=== PATIENT | male | born 1950 | race Caucasian/White ===

== ENCOUNTER 2019-08-30 13:13 | Emergency (ER) | payer MEDICARE, OTHER ==
--- NOTE | 2019-08-30 13:28 | ER Document Report ---
ED General - General Chief Complaint: Foot Injury Stated Complaint: RIGHT LEG INJURY Time Seen by Provider: 08/30/19 13:27 - HPI Patient complains to provider of: foot injury Notes: 69 y/o presenting to ED after his right foot was stuck under a pilon that rolled off the stack of pilons when he was attempting to get one for a job he notes his foot was trapped for about 45 minutes and he was unable to get up he has pain on top of foot without bruising or swelling he also has some pain in the ankle no head injury or LOC he is generally healthy per his report - Related Data Allergies/Adverse Reactions: No Known Allergies Allergy (Unverified 08/30/19 13:21) Past Medical History - Social History Smoking Status: Never Smoker Chew tobacco use (# tins/day): Yes Frequency of alcohol use: Occasional Drug Abuse: None Family History: Reviewed & Not Pertinent Patient has suicidal ideation: No Patient has homicidal ideation: No Review of Systems - Review of Systems Constitutional: No symptoms reported EENT: No symptoms reported Cardiovascular: No symptoms reported Respiratory: No symptoms reported Gastrointestinal: No symptoms reported Genitourinary: No symptoms reported Male Genitourinary: No symptoms reported Musculoskeletal: Other - foot pain Skin: No symptoms reported Hematologic/Lymphatic: No symptoms reported Neurological/Psychological: No symptoms reported Physical Exam - Vital signs Vitals: Temp Pulse Resp BP Pulse Ox 98.3 F 78 16 125/81 93 08/30/19 13:23 08/30/19 13:23 08/30/19 13:23 08/30/19 13:23 08/30/19 13:23 Interpretation: Normal - General General appearance: Appears well, Alert - HEENT Head: Normocephalic, Atraumatic Eyes: Normal Pupils: PERRL - Respiratory Respiratory status: No respiratory distress Chest status: Nontender Breath sounds: Normal Chest palpation: Normal - Cardiovascular Rhythm: Regular Heart sounds: Normal auscultation Murmur: No - Abdominal Inspection: Normal Distension: No distension Bowel sounds: Normal Tenderness: Nontender Organomegaly: No organomegaly - Back Back: Normal, Nontender - Extremities General upper extremity: Normal inspection, Nontender, Normal color, Normal ROM, Normal temperature General lower extremity: Normal inspection, Nontender, Normal color, Normal ROM, Normal temperature, Normal weight bearing. No: Shannon's sign Foot: Tender, Other - patient tender over dorsum of foot. good pulses. able to range. able to put weight on it. No: Deformity, Ecchymosis, Edema, Instability, Laceration - Neurological Neuro grossly intact: Yes Cognition: Normal Orientation: AAOx4 Loraine Coma Scale Eye Opening: Spontaneous Loraine Coma Scale Verbal: Oriented Lavinia Coma Scale Motor: Obeys Commands Loraine Coma Scale Total: 15 Speech: Normal Motor strength normal: LUE, RUE, LLE, RLE Sensory: Normal - Psychological Associated symptoms: Normal affect, Normal mood - Skin Skin Temperature: Warm Skin Moisture: Dry Skin Color: Normal Course - Re-evaluation Re-evalutation: 08/30/19 15:04 xr's negative crutches provided orthopedic follow up for persistent pain - Vital Signs Vital signs: Temp Pulse Resp BP Pulse Ox 98.3 F 78 16 125/81 93 08/30/19 13:23 08/30/19 13:23 08/30/19 13:23 08/30/19 13:23 08/30/19 13:23 - Diagnostic Test Radiology reviewed: Reports reviewed Discharge - Discharge Clinical Impression: Foot contusion Qualifiers: Encounter type: initial encounter Laterality: right Qualified Code(s): S90.31XA - Contusion of right foot, initial encounter Condition: Stable Disposition: HOME, SELF-CARE Instructions: Leg Pain Nonspecific ([facility]) Additional Instructions: follow up with orthopedic if pain continues use crutches as needed return to the ED if worsening pain or symptoms use tylenol and/or ibuprofen for pain Referrals: PAVAN GOMEZ DO [ACTIVE STAFF] - Follow up as needed
--- NOTE | 2019-08-30 13:56 | RADIOLOGY REPORT (SQ) ---
EXAM DESCRIPTION: FOOT RIGHT COMPLETE COMPLETED DATE/TIME: 08/30/2019 1:36 pm REASON FOR STUDY: Injury to Right foot/right foot pain COMPARISON: None. NUMBER OF VIEWS: Three views. TECHNIQUE: AP, lateral and oblique radiographic images acquired of the right foot. LIMITATIONS: None. FINDINGS: MINERALIZATION: Normal. BONES: No acute fracture or dislocation. No worrisome bone lesions. Cortical and periosteal thicken ing of the mid 2nd and 3rd metatarsals possibly related to prior injury. JOINTS: No effusions. SOFT TISSUES: No soft tissue swelling. No foreign body. OTHER: No other significant finding. IMPRESSION: No evidence of acute bony abnormality of the right foot. TECHNICAL DOCUMENTATION: JOB ID: [id number] [employer]- All Rights Reserved Reading location - IP/workstation name: [email or web address]
--- NOTE | 2019-08-30 15:04 | RADIOLOGY REPORT (SQ) ---
EXAM DESCRIPTION: ANKLE RIGHT COMPLETE COMPLETED DATE/TIME: 08/30/2019 2:54 pm REASON FOR STUDY: injury COMPARISON: None. NUMBER OF VIEWS: Three views. TECHNIQUE: AP, lateral, and oblique radiographic images acquired of the right ankle. LIMITATIONS: None. FINDINGS: MINERALIZATION: Normal. BONES: No acute fracture or dislocation. No worrisome bone lesions. JOINTS: Mild joint effusion. SOFT TISSUES: No soft tissue swelling. No foreign body. Vascular calcifications. OTHER: No other significant finding. IMPRESSION: Joint effusion without evidence of acute bony abnormality. TECHNICAL DOCUMENTATION: JOB ID: [id number] [employer]- All Rights Reserved Reading location - IP/workstation name: [email or web address]
[2019-08-30 15:44] VITALS: BP 124/64
== END 2019-08-30 15:44 | disposition home or self-care (01) ==
LOC: ER 13:13
DX: S90.31XA Contusion of right foot, initial encounter (principal); M79.671 Pain in right foot; M25.571 Pain in right ankle and joints of right foot; W22.8XXA Striking against or struck by other objects, initial encounter
CPT/HCPCS: 99283